=== PATIENT | male | born 1985 | race Caucasian/White ===

== ENCOUNTER 2018-07-31 09:19 | Emergency (ER) | payer MEDICAID ==
[~2018-07-31] VITALS: Ht 175.3 cm; Wt 68.0 kg
[2018-07-31 09:25] VITALS: BP_SYST 155
--- NOTE | 2018-07-31 09:28 | NUR ---
ambulated to bed 5
[2018-07-31] MEDS ORDERED: ONDANSETRON HCL 4 MG/2 ML VIAL IVP ONE (09:30)
[2018-07-31] MEDS ORDERED: NACL 0.9% 1,000 ML IV ONE (09:30)
--- NOTE | 2018-07-31 09:35 | NUR ---
DR. GANT AT BEDSIDE AD EXAMINING PATIENT.
--- NOTE | 2018-07-31 09:40 | NUR ---
PATIENT SITTING UP ON BED. AAOx4. RESPIRATIONS EVEN AND UNLABORED. NO SOB. DENIES OF ANY CHEST PAIN. NO HEADACHE. NO DIZZINESS. PATIENT WITH C/O NAUSEA AND DRY HEAVING SINCE THIS AM. PT STATES THAT HE HAD 3 BEERS LAST NIGHT. DENIES OF ANY ABDOMINAL PAIN. REST, RELAXATION, AND DEEP BREATHING ENCOURAGED. FAMILY AT BEDSIDE. MD ORDERS NOTED AND TO BE CARRIED OUT.
--- NOTE | 2018-07-31 09:50 | NUR ---
ZOFRAN ADMINISTERED FOR NAUSEA; TOLERATED WELL. PLEASE SEE MAR FOR DETAILS. IV NORMAL SALINE INFUSION STARTED PER MD ORDERS; TOLERATING WELL. PLEASE SEE MAR FOR DETAILS. WILL CONTINUE TO MONITOR.
--- NOTE | 2018-07-31 10:10 | NUR ---
PATIENT VERBALIZED RELIEF FROM NAUSEA. NO EPISODES OF VOMITING. IV FLUIDS CONTINUE TO INFUSE AND TOLERATING WELL. PT WITH C/O HEADACHE = 02/16. DR. GANT MADE AWARE. NO NEW ORDERS GIVEN AT THIS TIME. PT GIVEN AN ICE PACK FOR HEADACHE. TOLERATING WELL.
[2018-07-31] MEDS ORDERED: KETOROLAC TROMETHAMINE 30 MG VIAL IVP ONE (10:15)
[2018-07-31] MEDS ORDERED: METOCLOPRAMIDE HCL 10 MG/2 ML VIAL IVP ONE (10:15)
--- NOTE | 2018-07-31 10:30 | NUR ---
PATIENT WITH x1 EPISODE OF VOMITING MINIMAL CLEAR LIQUID EMESIS. DR. GANT AWARE. REGLAN FOR VOMITING AND TORADOL FOR HEADACHE ADMINISTERED PER MD ORDERS. TOLERATED WELL. PLEASE SEE MAR FOR DETAILS. REST, RELAXATION, AND DEEP BREATHING ENCOURAGED. WILL CONTINUE TO MONITOR.
--- NOTE | 2018-07-31 10:40 | NUR ---
PATIENT RESTING COMFORTABLY IN BED. VERBALIZED RELIEF FROM HEADACHE = 0/10 AND RELIEF FROM NAUSEA. [facility] ONTINUE TO MONITOR.
--- NOTE | 2018-07-31 10:55 | NUR ---
Patient given written and verbal discharge instructions and verbalizes understanding. ER MD discussed with patient the results and treatment provided. Patient in stable condition. ID arm band removed. IV catheter removed intact and dressing applied, no active bleeding. No Rx given. Patient educated on pain management and to follow up with PMD. Pain Scale 0. Opportunity for questions provided and answered.
[2018-07-31 11:00] VITALS: BP_SYST 137
== END 2018-07-31 10:55 | disposition home or self-care (01) ==
LOC: SED 09:19
DX: F10.129 Alcohol abuse with intoxication, unspecified (principal)
CPT/HCPCS: 96374; 96375; 99283; J1885; J2405; J7030; J2765